=== PATIENT | male | born 1995 | race African-American/Black ===

== ENCOUNTER 2019-08-26 16:43 | Emergency (ER) | payer SELFPAY ==
[2019-08-26 17:15] VITALS: BP 123/73
[2019-08-26] MEDS ORDERED: SULFAMETHOXAZOLE/TRIMETHOPRIM 800-160 MG TABLET PO ONE (17:39)
--- NOTE | 2019-08-26 17:43 | ER Document Report ---
HPI - HPI Patient complains to provider of: insect bite Time Seen by Provider: 08/26/19 17:35 Onset: Yesterday Onset/Duration: Sudden Pain Level: 4 Context: This 24-year-old male presents emergency department with complaints of insect bite possible abscess to the right cheek. Reports he noticed it 2 days ago. It has stayed the same size. No erythema no warmth no pustule. He tried to sque rosales it but nothing came out of it. Denies history of MRSA. Denies fever vomiting diarrhea. Associated Symptoms: None Exacerbated by: Denies Relieved by: Denies Similar symptoms previously: No Recently seen / treated by doctor: No Past Medical History - General Information source: Patient - Social History Smoking Status: Current Every Day Smoker Chew tobacco use (# tins/day): No Frequency of alcohol use: None Drug Abuse: None Family History: None Patient has suicidal ideation: No Patient has homicidal ideation: No - Medical History Medical History: Negative Surgical Hx: Negative Vertical Provider Document - CONSTITUTIONAL Agree With Documented VS: Yes Exam Limitations: No Limitations General Appearance: WD/WN, No Apparent Distress - INFECTION CONTROL TRAVEL OUTSIDE OF THE [place] IN LAST 30 DAYS: No - HEENT HEENT: Atraumatic, Normocephalic. negative: Conjuctival Injection, Tympanic Membrane Bulging - NECK Neck: Normal Inspection, Supple. negative: Lymphadenopathy-Left, Lymphadenopathy-Right - RESPIRATORY Respiratory: Breath Sounds Normal, No Respiratory Distress - CARDIOVASCULAR Cardiovascular: Regular Rate - MUSCULOSKELETAL/EXTREMETIES Musculoskeletal/Extremeties: MAEW, FROM, Non-Tender - NEURO Level of Consciousness: Awake, Alert, Appropriate Motor/Sensory: No Motor Deficit - DERM Integumentary: Warm, Dry. negative: Abscess Adult Front & Back Diagram: 1 - Soft swelling noted to right cheek ~ 1 cm around, no pustule no erythema no warmth no induration. Patient opens mouth wide Course - Re-evaluation Re-evalutation: 08/26/19 19:01 Patient presents with possible insect bite no abscess at this time. Patient was instructed on Septra. He was instructed on signs and symptoms of allergic reac tion. Instructed to monitor the site return if it increased in size or signs of infection. He verbalized understanding to all instructions. Dictation of this chart was performed using voice recognition software; therefore, there may be some unintended grammatical errors. - Vital Signs Vital signs: Temp Pulse Resp BP Pulse Ox 98 F 88 20 123/73 99 08/26/19 17:35 08/26/19 17:35 08/26/19 17:35 08/26/19 17:35 08/26/19 17:35 Discharge - Discharge Clinical Impression: Insect bite Qualifiers: Encounter type: initial encounter Site of insect bite: head Site of insect bite of head: other part Qualified Code(s): S00.96XA - Insect bite (nonvenomous) of unspecified part of head, initial encounter Condition: Stable Disposition: HOME, SELF-CARE Instructions: Trimethoprim-Sulfa ([facility]) Additional Instructions: *You have been treated for a insect bite *Take medication as prescribed *Monitor the site for signs of infection such as increasing pain, redness, sw elling, warmth *Keep the area clean, do not squeeze it *Follow up with a primary care provider in 3-5 days *Return to ED for signs of infection, worsening condition, changes, needs Prescriptions: Sulfamethoxazole/Trimethoprim [Bactrim Ds Tablet] 1 each PO BID #20 tablet Forms: Elevated Blood Pressure, Return to Work
== END 2019-08-26 17:45 | disposition home or self-care (01) ==
LOC: ER 16:43
DX: S00.96XA Insect bite (nonvenomous) of unspecified part of head, initial encounter (principal); W57.XXXA Bitten or stung by nonvenomous insect and other nonvenomous arthropods, initial encounter; F17.200 Nicotine dependence, unspecified, uncomplicated
CPT/HCPCS: 99282